=== PATIENT | male | born 1985 | race African-American/Black ===

== ENCOUNTER 2019-11-13 13:24 | Emergency (ER) | payer MEDICAID ==
[~2019-11-13] VITALS: Ht 175.3 cm; Wt 98.5 kg
[2019-11-13 13:37] VITALS: BP 130/88
--- NOTE | 2019-11-13 14:21 | NUR ---
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
[2019-11-13] MEDS ORDERED: DOCUSATE 50 MG/5 ML, 10ML UDC ONE (15:27)
[2019-11-13] MEDS ORDERED: DOCUSATE 50 MG/5 ML ORAL SOL PO ONE (15:30)
== END 2019-11-13 16:50 | disposition home or self-care (01) ==
LOC: ED 15:13
DX: H60.501 Unspecified acute noninfective otitis externa, right ear (principal); H61.21 Impacted cerumen, right ear
CPT/HCPCS: 99283

== ENCOUNTER 2020-02-22 09:11 | Emergency (ER) | payer MEDICAID ==
[~2020-02-22] VITALS: Ht 177.8 cm; Wt 99.6 kg
[2020-02-22 09:14] VITALS: BP 133/75
== END 2020-02-22 10:22 | disposition home or self-care (01) ==
LOC: ED 09:53
DX: H61.23 Impacted cerumen, bilateral (principal); M79.18 Myalgia, other site; M54.6 Pain in thoracic spine
CPT/HCPCS: 71046; 99283

== ENCOUNTER 2020-11-07 21:05 | Emergency (ER) | payer MEDICAID, OTHER ==
[~2020-11-07] VITALS: Ht 177.8 cm; Wt 98.9 kg
--- NOTE | 2020-11-07 21:13 | NUR ---
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
--- NOTE | 2020-11-07 23:08 | NUR ---
"EARLIER TODAY I TRIPPED AND FELL FORWARD AND ONTO MY RIGHT SIDE AND NOW I HAVE PAIN IN MY LOWER BACK, SHOULDER AND NECK AREA". DID NOT HIT HEAD. NO PARASPINAL TENDERNESS, MOTOR/SENSORY INTACT X4
[2020-11-07 23:31] LABS: MICROSCOPIC NOT IND
[2020-11-07] MEDS ORDERED: IBUPROFEN 600 MG TABLET ONE (23:37)
[2020-11-07 23:49] VITALS: BP 119/59
[2020-11-08] MEDS ORDERED: IBUPROFEN 600 MG TABLET PO ONE
== END 2020-11-07 23:53 | disposition home or self-care (01) ==
LOC: ED 23:30
DX: S46.811A Strain of other muscles, fascia and tendons at shoulder and upper arm level, right arm, initial encounter (principal); S20.211A Contusion of right front wall of thorax, initial encounter; S30.1XXA Contusion of abdominal wall, initial encounter; S40.011A Contusion of right shoulder, initial encounter; W01.0XXA Fall on same level from slipping, tripping and stumbling without subsequent striking against object, initial encounter; Y93.89 Activity, other specified; Y92.410 Unspecified street and highway as the place of occurrence of the external cause; Y99.8 Other external cause status
CPT/HCPCS: 81003; 99284